=== PATIENT | female | born 1945 | race Caucasian/White ===

== ENCOUNTER → 2024-08-07 | Outpatient (CLI) | payer MEDICARE, OTHER ==
--- NOTE | 2024-08-07 14:04 | US ---
EXAMINATION TYPE: US pelvic limited DATE OF EXAM: 08/07/2024 COMPARISON: NONE CLINICAL INDICATION: Female, 78 years old with history of N83.8 OVARIAN MASS RIGHT; recent kidney US showed fluid filled structure within pelvis, patient states she is unaware if ovaries remain TECHNIQUE: TA. Transabdominal grayscale sonographic images of the pelvis were acquired. Doppler imaging: Not performed. FINDINGS: Date of LMP: 30 years ago - hysterectomy EXAM MEASUREMENTS: Uterus: Surgically absent Endometrial Stripe: Surgically absent Right Ovary: not seen Left Ovary: not seen Due to size of cystic area TV exam would not benefit the patient, patient was also anxious about tr burt TY approach 1. Uterus: Surgically absent 2. Endometrium: Surgically absent 3. Right Ovary: possible surgical absence versus atrophy 4. Left Ovary: possible surgical absence versus atrophy 5. Bilateral Adnexa: wnl 6. Posterior cul-de-sac: wnl Midline pelvis has large cystic structure = 19.9 x 11.9 x 11.1cm with unknown etiology, slightly di stended bladder is seen to the left of structure IMPRESSION: Suboptimal study due to size of lesion. Confirmation of 19.9 cm thin-walled cystic lesion in the pelvis. Ovarian neoplasm needs to be considered. Advise further investigation with CT and/or MRI to better evaluate and characterize due to size. [facility], , 08/07/2024 2:02 PM
== END | disposition home or self-care (01) ==
LOC: RADUSWWP 13:31
PROVIDERS: ATTEND Internal Medicine
DX: N83.8 Other noninflammatory disorders of ovary, fallopian tube and broad ligament (principal); N94.89 Other specified conditions associated with female genital organs and menstrual cycle
CPT/HCPCS: 76857

== ENCOUNTER → 2024-08-29 | Outpatient (CLI) | payer MEDICARE, OTHER ==
--- NOTE | 2024-08-29 23:55 | MR ---
EXAMINATION TYPE: MR pelvis wo con DATE OF EXAM: 08/29/2024 7:00 PM COMPARISON: 08/07/2024. CLINICAL INDICATION: Female, 78 years old with history of R19.00 INTRA-ABD AND PELVIC SWELLING; PHH, Ovarian cyst, Pelvic pain, Pelvic mass, Abnormal U/S, Hx Hysterectomy TECHNIQUE: Triplane multisequence imaging was performed of the pelvis. IV Contrast: 8 mL Gadobutrol FINDINGS: Reproductive: Vagina: Unremarkable. Uterus: Uterus is not definitively visualized may be surgically absent or atrophic. Ovaries: Large cystic lesion in the pelvis measuring 18.5 x 11.9 x 12.7 cm. This displaces the: The u rinary bladder and other surrounding structures., Lack of contrast since evaluation but there is no m ural cyst thickening definitively visualized on noncontrast MRI. Bladder: Unremarkable. Bowel: Unremarkable as visualized. Peritoneum: No free fluid or adenopathy. Lymph nodes: No evidence of adenopathy. Vasculature: Unremarkable. Musculoskeletal: Bone marrow signal is within normal signal intensity. Abdominal wall/soft tissues: Unremarkable. Gallstones are seen within the gallbladder lumen. IMPRESSION: Large cystic lesion with thin presley possibly ovarian in etiology lack of contrast limits evaluation f or enhancing nodules. Possibly originating from the left ovary however evaluation is limited given it s large size in displacement of structures. If this is from the ovary could represent a cystic neopla sm versus simple cyst. Surgical consultation recommended. [facility], , 08/29/2024 11:53 PM
== END | disposition home or self-care (01) ==
LOC: RADMRIMAIN 17:48
PROVIDERS: ATTEND Internal Medicine
DX: K80.80 Other cholelithiasis without obstruction (principal)
CPT/HCPCS: 72195